=== PATIENT | female | born 1980 | race African-American/Black ===

== ENCOUNTER 2017-11-25 18:56 | Emergency (ER) | payer OTHER, MEDICAID ==
[~2017-11-25] VITALS: Ht 160 cm; Wt 88.9 kg
[2017-11-25 19:17] VITALS: Ht 160 cm; Wt 88.9 kg
[2017-11-26 01:09] VITALS: BP 127/60
== END 2017-11-26 01:09 | disposition home or self-care (01) ==
LOC: ED 18:56
DX: R51 Headache (principal); I10 Essential (primary) hypertension
CPT/HCPCS: 87804; J1100; J2270; J2765; J7030